=== PATIENT | male | born 1985 | race African-American/Black ===

== ENCOUNTER → 2018-08-19 | Outpatient (CLI) | payer BC ==
[2018-08-19 11:17] LABS: Anisocytosis Slight; Basophils % (A) 1 %; Eosinophils # (A) 0.2 k/uL (0-0.7); Eosinophils % (A) 6 %; HGB 12.4 gm/dL (13.0-17.5); Hypochromasia Slight; Lymphocytes # (A) 1.8 k/uL (1.0-4.8); Lymphocytes % (A) 47 %; MCH 25.9 pg (25.0-35.0); MCHC 30.3 g/dL (31.0-37.0); MCV 85.5 fL (80.0-100.0); Mean Platelet Volume 7.3; Monocytes # (A) 0.3 k/uL (0-1.0); Monocytes % (A) 7 %; Neutrophils # (A) 1.3 k/uL (1.3-7.7); Neutrophils % (A) 36 %; Platelet Count 349 k/uL (150-450); RDW 16.1 % (11.5-15.5); WBC 3.7 k/uL (3.8-10.6)
[2018-08-19 16:18] LABS: Albumin 4.3 g/dL (3.80-4.90); Albumin/Globulin Ratio 2.53 (1.60-3.17); Anion Gap 5.6 mmol/L (4.00-12.00); Calcium 9.2 mg/dL (8.7-10.3); Carbon Dioxide 28.4 mmol/L (21.6-31.8); Globulin 1.7 g/dL (1.6-3.3); LDL Cholesterol,Calculated 111.6 mg/dL (0.0-131.0); Potassium 4.4 mmol/L (3.5-5.5); Total Bilirubin 1.3 mg/dL (0.2-1.2); VLDL Calculation 19.4 mg/dL (5.00-40.00)
[2018-08-19 16:46] LABS: Hepatitis C IgG Antibody Non-Reactive (Non-Reactive)
== END | disposition home or self-care (01) ==
LOC: LABWHC1 10:17
PROVIDERS: ATTEND Family Medicine
DX: Z20.828 Contact with and (suspected) exposure to other viral communicable diseases (principal)
CPT/HCPCS: 36415; 80053; 80061; 84439; 84443; 85025; 86706; 86803; 87340

== ENCOUNTER → 2020-04-11 | Outpatient (CLI) | payer BC ==
--- NOTE | 2020-04-15 07:25 | US ---
EXAMINATION TYPE: US abdomen complete DATE OF EXAM: 04/13/2020 COMPARISON: NONE CLINICAL HISTORY: R10.9 abdominal pain R03.0 Elevated blood-pressure. EXAM MEASUREMENTS: Liver Length: 14.3 cm Gallbladder Wall: 0.2 cm CBD: 0.4 cm Spleen: 9.5 cm Right Kidney: 11.0 x 5.1 x 5.5 cm Left Kidney: 12.0 x 5.7 6.1 cm Pancreas: Obscured by bowel gas Liver: Increased attenuation Gallbladder: wnl Evidence for sonographic Hernandez's sign: CBD: wnl Spleen: wnl Right Kidney: No hydronephrosis or masses seen Left Kidney: No hydronephrosis or masses seen Upper IVC: wnl Abd Aorta: portions visualized wnl, partially obscured by bowel gas Bladder: wnl, bilateral jets seen initially. The visualized liver is heterogeneously hyperechoic. The intrahepatic portion of the IVC and mid and distal abdominal aorta are within normal limits. There is no evidence of cholelithiasis. Common bi le duct is unremarkable. 2 images saved of attempted visualization of the pancreas are suboptimal due to overlying bowel gas. The spleen is unremarkable. Kidneys are symmetric and free of hydronephros is. No renal lesions are seen. IMPRESSION: No acute findings are evident. Heterogeneous hyperechoic appearance of liver likely on th e basis of mild diffuse fatty infiltration. Suboptimal evaluation of pancreas noted.
== END | disposition home or self-care (01) ==
LOC: RADUSWWP 07:36
PROVIDERS: ATTEND Family Medicine
DX: R93.2 Abnormal findings on diagnostic imaging of liver and biliary tract (principal); R10.9 Unspecified abdominal pain; R03.0 Elevated blood-pressure reading, without diagnosis of hypertension
CPT/HCPCS: 76700

== ENCOUNTER → 2020-04-24 | Outpatient (CLI) | payer BC | END | disposition home or self-care (01) | LOC: LABWHC1 14:31 | PROVIDERS: ATTEND Emergency Medicine | DX: Z20.828 Contact with and (suspected) exposure to other viral communicable diseases (principal) | CPT/HCPCS: U0003; C9803 ==